=== PATIENT | male | born 1940 | race Caucasian/White ===

== ENCOUNTER 2023-01-23 06:46 | Day surgery (SDC) | payer MEDICARE ==
[2023-01-22 12:18] LABS: BASOPHILS % (AUTO) 0.3 % (0-1); EOSINOPHILS # (AUTO) 0.1 X10'3 (0-0.9); EOSINOPHILS % (AUTO) 1.7 % (0-6); HEMATOCRIT 41.9 % (42.0-52.0); HEMOGLOBIN 13.9 g/dl (14.0-17.9); LYMPHOCYTES # (AUTO) 1.4 X10'3 (1.1-4.8); LYMPHOCYTES % (AUTO) 19.6 % (21-51); MEAN CORPUSCULAR HEMOGLOBIN 29.3 PG (27.0-31.0); MEAN CORPUSCULAR HGB CONC 33.2 g/dL (33.0-36.5); MEAN CORPUSCULAR VOLUME 88.2 FL (78-98); MEAN PLATELET VOLUME 7.8 FL (7.4-10.4); MONOCYTES # (AUTO) 0.6 X10'3 (0-0.9); MONOCYTES % (AUTO) 8.9 % (2-12); NEUTROPHILS # (AUTO) 4.9 X10'3 (1.8-7.7); NEUTROPHILS % (AUTO) 69.5 % (42-75); PLATELET COUNT 231 X10'3 (140-440); RED BLOOD COUNT 4.75 X10'6 (4.70-6.10); RED CELL DISTRIBUTION WIDTH 13.6 % (11.5-14.5)
[2023-01-22 12:28] LABS: ALBUMIN 3.8 G/DL (3.4-5.0); ANION GAP 8 (8-16); BLOOD UREA NITROGEN 16 MG/DL (7-18); BUN/CREATININE RATIO 13.6 (10.0-20.0); CALCIUM 9.3 MG/DL (8.5-10.1); CHLORIDE 105 MMOL/L (99-107); CREATININE 1.18 MG/DL (0.60-1.10); GLUCOSE 98 MG/DL (70-104); POTASSIUM 4.3 MMOL/L (3.5-5.1); SODIUM 140 MMOL/L (135-145); TOTAL CARBON DIOXIDE 27.2 MMOL/L (24-32); eGFR 59 ML/MIN
[2023-01-22 12:31] LABS: APTT 29 SECONDS (22-32)
[~2023-01-23] VITALS: Ht 175.3 cm; Wt 95.8 kg
[2023-01-23] VITALS (12 sets, daily range): BP systolic 109–164; BP diastolic 60–97; PULSE 60–70; RESP 14–16; TEMP 98.4; O2SAT 94–98
[2023-01-23] MEDS ORDERED: CARB1TAB36 PO (07:11)
[2023-01-23] MEDS ORDERED: ASPI81TA52 PO (07:11)
[2023-01-23] MEDS ORDERED: GLUC1CAP36 PO (07:11)
[2023-01-23] MEDS ORDERED: ALFU10TA10 PO (07:11)
[2023-01-23] MEDS ORDERED: LEVO100T9 PO (07:11)
[2023-01-23] MEDS ORDERED: ROSU40TA22 PO (07:11)
[2023-01-23] MEDS ORDERED: normal saline 1,000 ML IV SCH (07:20)
[2023-01-23] MEDS ORDERED: diphenhydrAMINE 25mg capsule PO PRN (07:20)
[2023-01-23] MEDS ORDERED: LORazepam 0.5 MG tablet PO PRN (07:20)
[2023-01-23] MEDS ORDERED: midazolam 1 mg/ML 2ml injection ONE (08:55)
[2023-01-23] MEDS ORDERED: fentaNYL/PF 50MCG/1 ML 2ML syringe ONE (08:55)
[2023-01-23] MEDS ORDERED: iohexol 350 MG/ML 50ML vial IV ONE ×2 (08:55→09:48)
[2023-01-23] MEDS ORDERED: LIDOcaine 1% (10mg/ml) 2ml vial ONE (08:55)
[2023-01-23] MEDS ORDERED: verapamil 2.5 mg/ml inj IV ONE (08:55)
[2023-01-23] MEDS ORDERED: heparin 1,000unit/ml 10ml vial 10 ML ONE (08:55)
[2023-01-23] MEDS ORDERED: iohexol 350MG/ML 100ml bottle IV ONE ×2 (08:56→10:02)
[2023-01-23] MEDS ORDERED: nitroGLYCERIN 500mcg/5mL D5W 0 ML IV ONE (08:57)
[2023-01-23] MEDS ORDERED: nitroGLYCERIN 500mcg/5mL D5W 5 ML IV ONE (08:59)
[2023-01-23] MEDS ORDERED: LIDOcaine 1% (10mg/ml)w/preservative inj. 20ml MDV ONE (09:33)
[2023-01-23 09:50] LABS: ISTAT HGB ART 12.9 g/dl (14.0-17.9); ISTAT Hct ART 38 %PCV (42-52); ISTAT O2 SATURATION ARTERIAL 94 % (95-98); ISTAT SOURCE ART
[2023-01-23] MEDS ORDERED: heparin 25,000 UNIT/250ml bag 250 ML IV ONE (10:04)
[2023-01-23] MEDS ORDERED: heparin 1,000 UNITS/NS 500ml 500 ML ONE (10:10)
[2023-01-23 10:15] LABS: ISTAT HGB MIX 12.9 g/dl (14.0-17.9); ISTAT Hct MIX 38 %PCV (42-52); ISTAT O2 SATURATION MIX VENOUS 68 % (60-80); ISTAT SOURCE VEN
== END 2023-01-23 16:00 | disposition home or self-care (01) ==
LOC: SSTAY O 06:46
PROVIDERS: ATTEND Internal Medicine Cardiovascular Disease
DX: R94.39 Abnormal result of other cardiovascular function study (principal); I25.10 Atherosclerotic heart disease of native coronary artery without angina pectoris; I25.82 Chronic total occlusion of coronary artery; E78.5 Hyperlipidemia, unspecified; I35.0 Nonrheumatic aortic (valve) stenosis; I25.2 Old myocardial infarction; G47.39 Other sleep apnea; E66.3 Overweight; Z68.30 Body mass index [BMI] 30.0-30.9, adult; Z96.653 Presence of artificial knee joint, bilateral; Z95.0 Presence of cardiac pacemaker; Z98.890 Other specified postprocedural states; Z87.891 Personal history of nicotine dependence; Z88.0 Allergy status to penicillin; Z88.2 Allergy status to sulfonamides; Z79.899 Other long term (current) drug therapy; Z79.01 Long term (current) use of anticoagulants; Z83.3 Family history of diabetes mellitus; Z80.9 Family history of malignant neoplasm, unspecified
CPT/HCPCS: 36415; 76937; 80048; 82803; 85014; 85025; 85610; 85730; 93460; 99152; 99153; A6258; J1644; J2250; J3010; J3490; J7030; Q0163; Q9967; A6402; C1725; C1751; C1769; C1894

== ENCOUNTER 2024-01-29 10:42 | Day surgery (SDC) | payer MEDICARE ==
[~2024-01-29] VITALS: Ht 175.3 cm; Wt 84.0 kg
[~2024-01-29 10:42] MED LIST: ALFU10TA47 PO; ASPI81TA52 PO; BACL20TA PO; CARB1TAB36 PO; CLOP-32 PO; DONE10TA19 PO; GLUC1CAP36 PO; LEVO100T9 PO; LOP12.5T PO; ROSU40TA89 PO; SOLI5TAB2 PO
[2024-01-29 11:23] VITALS: BP 166/88; PULSE 60; RESP 15
[2024-01-29] MEDS ORDERED: propofol 10mg/ml 20ml vial IV ONE (11:42)
[2024-01-29 12:22] VITALS: BP 105/55; PULSE 60; RESP 22; O2SAT 96
[2024-01-29 12:32] VITALS: BP 120/67; PULSE 63; RESP 17; O2SAT 96
[2024-01-29 12:42] VITALS: BP 140/75; PULSE 60; RESP 16; O2SAT 97
[2024-01-29 12:52] VITALS: BP 154/83; PULSE 60; RESP 18; O2SAT 98
== END 2024-01-29 13:17 | disposition home or self-care (01) ==
LOC: GI LAB 10:42
PROVIDERS: ATTEND Internal Medicine Gastroenterology
DX: R19.4 Change in bowel habit (principal); D12.2 Benign neoplasm of ascending colon; D12.8 Benign neoplasm of rectum; K57.30 Diverticulosis of large intestine without perforation or abscess without bleeding; I10 Essential (primary) hypertension; I25.10 Atherosclerotic heart disease of native coronary artery without angina pectoris; G47.33 Obstructive sleep apnea (adult) (pediatric); I25.2 Old myocardial infarction; Z87.891 Personal history of nicotine dependence; Z79.82 Long term (current) use of aspirin; Z79.890 Hormone replacement therapy; Z79.899 Other long term (current) drug therapy; Z95.0 Presence of cardiac pacemaker; Z98.890 Other specified postprocedural states; Z88.0 Allergy status to penicillin; Z88.2 Allergy status to sulfonamides
CPT/HCPCS: 45385; 88305; C1889; J2704; J7030